=== PATIENT | female | born 1970 | race Caucasian/White ===

== ENCOUNTER 2025-09-21 17:53 | Emergency (ER) | payer OTHER | END 2025-09-21 21:19 | disposition home or self-care (01) | LOC: ED 17:53 | DX: K85.90 Acute pancreatitis without necrosis or infection, unspecified (principal); Z88.0 Allergy status to penicillin; Z88.5 Allergy status to narcotic agent; Z79.899 Other long term (current) drug therapy; Z87.891 Personal history of nicotine dependence ==